=== PATIENT | female | born 1965 | race African-American/Black ===

== ENCOUNTER 2021-07-09 16:00 | Emergency (ER) | payer OTHER ==
[2021-07-09 16:52] LABS: #Eosinphils 0.1 10x3/uL (0.0-0.5); #Monocytes 0.5 10x3/uL (0.0-1.1); %Basophils 0.6 % (0.0-2.0); %Eosinophils 1.2 % (0.0-6.0); %Lymphocytes 28.3 % (18.0-47.0); %Monocytes 8.2 % (0.0-10.0); %Neutrophils 60.9 % (40.0-75.0); Hemoglobin 11.9 g/dL (12.0-15.5); Mean Corpuscular HGB CONC 31.4 g/dL (32.0-36.0); Mean Corpuscular Hemoglobin 30.4 pg (27.0-33.0); Mean Corpuscular Volume 96.7 fl (81.6-98.3); Mean Platelet Volume 11.5 fl (7.4-10.4); Platelet Count 201 10x3/uL (150-450); RBC Distribution Width 14.6 % (11.5-14.5); Red Blood Cell (RBC) Count 3.92 10x6/uL (3.90-5.03); White Blood Cell (WBC) Count 6.6 10x3/uL (3.5-10.5)
[2021-07-09 16:55] LABS: ALT (SGPT) 11 U/L (8-55); AST (SGOT) 16 U/L (5-34); Albumin 3.9 g/dL (3.5-5.0); Alkaline Phosphatase 82 U/L (40-110); Anion Gap 16 mmol/L (10-20); BUN (Urea Nitrogen) 13 mg/dL (9.8-20.1); Bilirubin, Total 1.3 mg/dL (0.2-1.2); Calc. Creatinine Clearance 0 mL/min (70-130); Calcium 8.7 mg/dL (7.8-10.44); Carbon Dioxide 27 mmol/L (22-29); Chloride 104 mmol/L (98-107); Globulin 2.9 g/dL (2.4-3.5); Glucose 131 mg/dL (70-105); Protein, Total 6.8 g/dL (6.0-8.3); Sodium 143 mmol/L (136-145)
[2021-07-09 18:34] LABS: Magnesium 1.2 mg/dL (1.6-2.6)
[2021-07-09] MEDS ORDERED: Magnesium 2 GM/50 ML BAG (IN WATER) ONE (18:48)
== END 2021-07-09 19:20 | disposition home or self-care (01) ==
LOC: CSHERS 16:00
DX: T82.897A Other specified complication of cardiac prosthetic devices, implants and grafts, initial encounter (principal); I48.91 Unspecified atrial fibrillation; I25.10 Atherosclerotic heart disease of native coronary artery without angina pectoris; I11.0 Hypertensive heart disease with heart failure; I50.9 Heart failure, unspecified; E78.5 Hyperlipidemia, unspecified; E11.9 Type 2 diabetes mellitus without complications
CPT/HCPCS: 71045; 80053; 83735; 83880; 84484; 85025; 93005; 94760; 96365; J3475

== ENCOUNTER 2022-03-20 16:19 | Emergency (ER) | payer BC, SELFPAY | END 2022-03-20 16:57 | disposition home or self-care (01) | LOC: CSHERS 16:19 | DX: Z45.02 Encounter for adjustment and management of automatic implantable cardiac defibrillator (principal); I11.0 Hypertensive heart disease with heart failure; I50.9 Heart failure, unspecified; E11.9 Type 2 diabetes mellitus without complications; E78.5 Hyperlipidemia, unspecified | CPT/HCPCS: 99283 ==

== ENCOUNTER 2022-10-09 15:00 | Emergency (ER) | payer SELFPAY | END 2022-10-09 16:05 | disposition home or self-care (01) | LOC: CSHERS 15:00 | DX: B37.9 Candidiasis, unspecified (principal); E78.5 Hyperlipidemia, unspecified; I11.0 Hypertensive heart disease with heart failure; I50.9 Heart failure, unspecified; E11.9 Type 2 diabetes mellitus without complications | CPT/HCPCS: 99282 ==

== ENCOUNTER 2023-01-10 14:45 | Emergency (ER) | payer SELFPAY ==
[2023-01-10] MEDS ORDERED: Dexamethasone 10 MG/ML VIAL ONE (18:18)
== END 2023-01-10 18:05 | disposition home or self-care (01) ==
LOC: CSHERS 14:45
DX: L03.115 Cellulitis of right lower limb (principal); E11.40 Type 2 diabetes mellitus with diabetic neuropathy, unspecified; I11.0 Hypertensive heart disease with heart failure; I50.9 Heart failure, unspecified; E78.5 Hyperlipidemia, unspecified; Z79.899 Other long term (current) drug therapy
CPT/HCPCS: 99283; J1100

== ENCOUNTER 2023-05-29 17:37 | Inpatient (IN) | payer SELFPAY ==
[2023-05-29 18:01] LABS: #Basophils 0.1 10x3/uL (0.0-0.2); #Eosinphils 0.1 10x3/uL (0.0-0.5); #Monocytes 0.5 10x3/uL (0.0-1.1); #Neutrophils 3.1 10x3/uL (1.5-8.4); %Basophils 0.8 % (0.0-2.0); %Eosinophils 0.8 % (0.0-6.0); %Lymphocytes 47.8 % (18.0-47.0); Hematocrit 47.6 % (34.9-44.5); Hemoglobin 15.2 g/dL (12.0-15.5); Mean Corpuscular HGB CONC 31.9 g/dL (32.0-36.0); Mean Corpuscular Hemoglobin 29.6 pg (27.0-33.0); Mean Corpuscular Volume 92.8 fl (81.6-98.3); Mean Platelet Volume 10.7 fl (7.4-10.4); Platelet Count 210 10x3/uL (150-450); RBC Distribution Width 16.1 % (11.5-14.5); Red Blood Cell (RBC) Count 5.13 10x6/uL (3.90-5.03); White Blood Cell (WBC) Count 7.1 10x3/uL (3.5-10.5)
[2023-05-29] MEDS ORDERED: Digoxin 0.5 MG/2 ML AMP ONE (18:03)
[2023-05-29] MEDS ORDERED: Magnesium 2 GM/50 ML BAG (IN WATER) ONE (18:04)
[2023-05-29] MEDS ORDERED: dilTIAZem 125 MG/25 ML SDV ONE (18:04)
[2023-05-29] MEDS ORDERED: dilTIAZem 25 MG/5 ML VIAL ONE (18:05)
[2023-05-29] MEDS ORDERED: Amiodarone 150 MG/3 ML VIAL ONE (18:16)
[2023-05-29] MEDS ORDERED: Amiodarone In Dextrose 200 ML ONE (18:17)
[2023-05-29 18:19] LABS: ALT (SGPT) 22 U/L (8-55); AST (SGOT) 25 U/L (5-34); Albumin 4.1 g/dL (3.5-5.0); Alkaline Phosphatase 78 U/L (40-110); Anion Gap 16 mmol/L (10-20); BUN (Urea Nitrogen) 12 mg/dL (9.8-20.1); Bilirubin, Total 2.6 mg/dL (0.2-1.2); Calc. Creatinine Clearance 0 mL/min (70-130); Calcium 8.9 mg/dL (7.8-10.44); Carbon Dioxide 21 mmol/L (22-29); Chloride 105 mmol/L (98-107); Estimated GFR 67; Globulin 3.2 g/dL (2.4-3.5); Glucose 170 mg/dL (70-105); Lipase 7 U/L (8-78); Potassium 4.2 mmol/L (3.5-5.1); Protein, Total 7.3 g/dL (6.0-8.3); Sodium 138 mmol/L (136-145)
[2023-05-29 18:21] LABS: Troponin I 0.035 ng/mL (< 0.028)
[2023-05-29] MEDS ORDERED: Furosemide 40 MG/4 ML VIAL ONE (18:51)
[2023-05-29] MEDS ORDERED: Acetaminophen 325 MG TAB PO PRN (19:33)
[2023-05-29] MEDS ORDERED: Ondansetron PF 4 MG/2 ML Vial IVP PRN (19:33)
[2023-05-29] MEDS ORDERED: Dextrose 5% in Water 1,000 ML IV PRN (19:38)
[2023-05-29] MEDS ORDERED: HumaLOG 300 UNITS/3 ML VIAL SC PRN ×2 (19:38)
[2023-05-29] MEDS ORDERED: Glucagon 1 MG/ML KIT IM PRN (19:38)
[2023-05-29] MEDS ORDERED: Dextrose 50% Abboject 50 ML SYRINGE SLOW IVP PRN (19:38)
[2023-05-29] MEDS ORDERED: Amiodarone In Dextrose 200 ML IVPB SCH (21:00)
[2023-05-29] MEDS ORDERED: Amiodarone In Dextrose 150 MG in Premix Bag 1 BAG IVPB SCH (21:00)
[2023-05-29] MEDS ORDERED: Amiodarone 450 MG in Dextrose 5% in Water 250 ML IVPB SCH (21:00)
[2023-05-29 21:40] LABS: Troponin I 0.037 ng/mL (< 0.028)
[2023-05-30 04:58] LABS: #Basophils 0.1 10x3/uL (0.0-0.2); #Eosinphils 0.1 10x3/uL (0.0-0.5); #Monocytes 0.5 10x3/uL (0.0-1.1); #Neutrophils 2.7 10x3/uL (1.5-8.4); %Basophils 1.1 % (0.0-2.0); %Lymphocytes 46.8 % (18.0-47.0); %Neutrophils 42.8 % (40.0-75.0); Hematocrit 43.8 % (34.9-44.5); Hemoglobin 14.1 g/dL (12.0-15.5); Mean Corpuscular HGB CONC 32.2 g/dL (32.0-36.0); Mean Corpuscular Hemoglobin 29.7 pg (27.0-33.0); Mean Corpuscular Volume 92.4 fl (81.6-98.3); Mean Platelet Volume 11.2 fl (7.4-10.4); Platelet Count 214 10x3/uL (150-450); RBC Distribution Width 15.9 % (11.5-14.5); Red Blood Cell (RBC) Count 4.74 10x6/uL (3.90-5.03); White Blood Cell (WBC) Count 6.2 10x3/uL (3.5-10.5)
[2023-05-30 05:20] LABS: Anion Gap 21 mmol/L (10-20); BUN (Urea Nitrogen) 12 mg/dL (9.8-20.1); Calc. Creatinine Clearance 180 mL/min (70-130); Calcium 9.2 mg/dL (7.8-10.44); Carbon Dioxide 18 mmol/L (22-29); Chloride 105 mmol/L (98-107); Estimated GFR 80; Glucose 129 mg/dL (70-105); Magnesium 1.5 mg/dL (1.6-2.6); Potassium 4.1 mmol/L (3.5-5.1); Sodium 140 mmol/L (136-145)
[2023-05-30] MEDS: Furosemide 40 MG/4 ML VIAL SLOW IVP SCH ×2 (05:54→14:51)
[2023-05-30 06:02] VITALS: BMI 127.5
[2023-05-30] MEDS ORDERED: Levothyroxine Sodium 75 MCG TAB PO SCH (07:15)
[2023-05-30] MEDS ORDERED: Magnesium 2 GM/50 ML(in water) 2 GM in Premix Bag 1 BAG IVPB SCH (07:15)
[2023-05-30] MEDS ORDERED: Dofetilide 0.25 MG CAP PO SCH (09:00)
[2023-05-30] MEDS ORDERED: Dofetilide 0.125 MG CAP PO SCH (09:15)
[2023-05-30] MEDS ORDERED: Ergocalciferol 1.25 MG(50,000 UNITS) CAP PO SCH (10:00)
[2023-05-30] MEDS: Calcium Carbonate 500 MG ChewTAB PO PRN ×3 (10:10→21:50)
[2023-05-30] MEDS: Rivaroxaban 10 MG TAB PO SCH (10:10)
[2023-05-30] MEDS: Gabapentin 100 MG CAP PO SCH ×3 (10:11→21:45)
[2023-05-30 13:39] LABS: Digoxin Less than 0.15 ng/mL (0.8-2.0)
[2023-05-30 17:34] LABS: Magnesium 1.6 mg/dL (1.6-2.6); Potassium 3.8 mmol/L (3.5-5.1); Sodium 138 mmol/L (136-145)
[2023-05-30] MEDS: Atorvastatin Calcium 40 MG TAB PO SCH (21:45)
[2023-05-30] MEDS: Dofetilide 0.25 MG CAP PO SCH (22:30)
[2023-05-31 05:03] LABS: Anion Gap 17 mmol/L (10-20); BUN (Urea Nitrogen) 11 mg/dL (9.8-20.1); Calc. Creatinine Clearance 384 mL/min (70-130); Calcium 9.3 mg/dL (7.8-10.44); Carbon Dioxide 24 mmol/L (22-29); Chloride 102 mmol/L (98-107); Estimated GFR 78; Glucose 134 mg/dL (70-105); Magnesium 1.4 mg/dL (1.6-2.6); Potassium 3.7 mmol/L (3.5-5.1); Sodium 139 mmol/L (136-145)
[2023-05-31 05:07] LABS: #Basophils 0.1 10x3/uL (0.0-0.2); #Eosinphils 0.1 10x3/uL (0.0-0.5); #Monocytes 0.5 10x3/uL (0.0-1.1); #Neutrophils 2.3 10x3/uL (1.5-8.4); %Basophils 0.9 % (0.0-2.0); %Eosinophils 1.9 % (0.0-6.0); %Lymphocytes 45.5 % (18.0-47.0); %Monocytes 8.5 % (0.0-10.0); Hematocrit 43.1 % (34.9-44.5); Hemoglobin 13.8 g/dL (12.0-15.5); Mean Corpuscular Hemoglobin 29.6 pg (27.0-33.0); Mean Corpuscular Volume 92.3 fl (81.6-98.3); Mean Platelet Volume 10.9 fl (7.4-10.4); Platelet Count 209 10x3/uL (150-450); RBC Distribution Width 15.9 % (11.5-14.5); Red Blood Cell (RBC) Count 4.67 10x6/uL (3.90-5.03); White Blood Cell (WBC) Count 5.3 10x3/uL (3.5-10.5)
[2023-05-31] MEDS ORDERED: Potassium Chloride 20 MEQ TAB PO SCH (06:30)
[2023-05-31] MEDS: Furosemide 40 MG/4 ML VIAL SLOW IVP SCH ×2 (06:36→16:34)
[2023-05-31] MEDS: Levothyroxine Sodium 75 MCG TAB PO SCH (06:38)
[2023-05-31] MEDS ORDERED: Magnesium 2 GM/50 ML(in water) 2 GM in Premix Bag 1 BAG IVPB SCH (09:45)
[2023-05-31] MEDS: Rivaroxaban 10 MG TAB PO SCH (09:47)
[2023-05-31] MEDS: Spironolactone 25 MG TAB PO SCH (09:47)
[2023-05-31] MEDS: Magnesium Oxide 400 MG TAB PO SCH ×2 (09:49→21:25)
[2023-05-31] MEDS: Gabapentin 100 MG CAP PO SCH ×3 (09:50→21:24)
[2023-05-31] MEDS: Sertraline 100 MG TAB PO SCH (09:52)
[2023-05-31] MEDS: Dofetilide 0.25 MG CAP PO SCH ×2 (09:54→21:24)
[2023-05-31] MEDS: Atorvastatin Calcium 40 MG TAB PO SCH (21:25)
[2023-05-31] MEDS: Calcium Carbonate 500 MG ChewTAB PO PRN (21:29)
[2023-06-01 05:12] LABS: #Basophils 0.1 10x3/uL (0.0-0.2); #Eosinphils 0.1 10x3/uL (0.0-0.5); #Monocytes 0.5 10x3/uL (0.0-1.1); #Neutrophils 2.7 10x3/uL (1.5-8.4); %Basophils 0.8 % (0.0-2.0); %Eosinophils 1.8 % (0.0-6.0); %Monocytes 8.6 % (0.0-10.0); %Neutrophils 44.5 % (40.0-75.0); Hematocrit 43.4 % (34.9-44.5); Mean Corpuscular HGB CONC 32.3 g/dL (32.0-36.0); Mean Corpuscular Hemoglobin 29.8 pg (27.0-33.0); Mean Corpuscular Volume 92.3 fl (81.6-98.3); Mean Platelet Volume 11.2 fl (7.4-10.4); Platelet Count 209 10x3/uL (150-450); RBC Distribution Width 15.9 % (11.5-14.5); White Blood Cell (WBC) Count 6.1 10x3/uL (3.5-10.5)
[2023-06-01 05:24] LABS: Anion Gap 16 mmol/L (10-20); BUN (Urea Nitrogen) 13 mg/dL (9.8-20.1); Calc. Creatinine Clearance 393 mL/min (70-130); Calcium 9.1 mg/dL (7.8-10.44); Carbon Dioxide 28 mmol/L (22-29); Chloride 101 mmol/L (98-107); Estimated GFR 80; Glucose 107 mg/dL (70-105); Magnesium 1.5 mg/dL (1.6-2.6); Potassium 3.9 mmol/L (3.5-5.1); Sodium 141 mmol/L (136-145)
[2023-06-01] MEDS: Levothyroxine Sodium 75 MCG TAB PO SCH (05:48)
[2023-06-01] MEDS ORDERED: Bumetanide 1 MG TAB PO SCH (07:30)
[2023-06-01] MEDS ORDERED: Carvedilol 6.25 MG TAB PO SCH (08:00)
[2023-06-01 08:27] VITALS: TEMP 97.8
[2023-06-01] MEDS ORDERED: Glycopyrrolate 0.2 MG/ML 5 ML SYRINGE ONE (08:50)
[2023-06-01] MEDS ORDERED: PROPOFOL 20 ML ONE (08:50)
[2023-06-01] MEDS ORDERED: Losartan 25 MG TAB PO SCH (09:00)
[2023-06-01] MEDS ORDERED: Magnesium 2 GM/50 ML(in water) 2 GM in Premix Bag 1 BAG IVPB SCH (09:15)
[2023-06-01] MEDS ORDERED: Potassium Chloride 20 MEQ TAB PO SCH (09:15)
[2023-06-01 11:53] VITALS: BP 104/69
[2023-06-01] MEDS: Magnesium Oxide 400 MG TAB PO SCH (11:55)
[2023-06-01] MEDS: Rivaroxaban 10 MG TAB PO SCH (11:55)
[2023-06-01] MEDS: Sertraline 100 MG TAB PO SCH (11:57)
[2023-06-01] MEDS: Gabapentin 100 MG CAP PO SCH (11:58)
[2023-06-01] MEDS: Spironolactone 25 MG TAB PO SCH (11:59)
[2023-06-01] MEDS ORDERED: Lidocaine 1% (PF) 30 ML VIAL ONE (12:00)
[2023-06-01] MEDS ORDERED: PROPOFOL 200 MG/20 ML VIAL ONE (12:00)
[2023-06-01] MEDS: Dofetilide 0.25 MG CAP PO SCH (13:21)
== END 2023-06-01 13:50 | disposition home or self-care (01) | DRG 308 ==
LOC: CSHERS 17:37 → CSHTELE 20:27
PROVIDERS: ADMIT Family Medicine; ATTEND Internal Medicine
PROC: 5A2204Z Restoration of Cardiac Rhythm, Single (ICD-10-PCS; principal; 2023-06-01)
DX: I48.19 Other persistent atrial fibrillation (principal); I50.43 Acute on chronic combined systolic (congestive) and diastolic (congestive) heart failure; Z68.43 Body mass index [BMI] 50.0-59.9, adult; I42.8 Other cardiomyopathies; E11.9 Type 2 diabetes mellitus without complications; I10 Essential (primary) hypertension; E78.5 Hyperlipidemia, unspecified; K21.9 Gastro-esophageal reflux disease without esophagitis; E66.01 Morbid (severe) obesity due to excess calories; I27.20 Pulmonary hypertension, unspecified; E83.42 Hypomagnesemia; R77.8 Other specified abnormalities of plasma proteins; Z79.899 Other long term (current) drug therapy; Z79.84 Long term (current) use of oral hypoglycemic drugs; Z79.01 Long term (current) use of anticoagulants; Z86.718 Personal history of other venous thrombosis and embolism; Z86.711 Personal history of pulmonary embolism; Z95.810 Presence of automatic (implantable) cardiac defibrillator; Z90.49 Acquired absence of other specified parts of digestive tract; Z98.890 Other specified postprocedural states
CPT/HCPCS: 36415; 36416; 71045; 80048; 80053; 80162; 83690; 83735; 83880; 84443; 84484; 85025; 92960; 93005; 93010; 93306; 94760; 96365; 96366; 96375; J0282; J0283; J1160; J1940; J2001; J2704; J3475; J8499

== ENCOUNTER 2023-08-26 23:39 | Inpatient (IN) | payer OTHER ==
[2023-08-27] MEDS ORDERED: Magnesium 2 GM/50 ML(in water) 2 GM in Premix 1 BAG IVPB SCH (04:00)
[2023-08-27] MEDS ORDERED: dilTIAZem 125 MG in Sodium Chloride 0.9% 100 ML IVPB SCH (04:15)
[2023-08-27] MEDS ORDERED: HumaLOG 300 UNITS/3 ML VIAL SC PRN (04:24)
[2023-08-27] MEDS ORDERED: Dextrose 50% Abboject 50 ML SYRINGE SLOW IVP PRN (04:24)
[2023-08-27] MEDS ORDERED: Dextrose 5% in Water 1,000 ML IV PRN (04:24)
[2023-08-27] MEDS ORDERED: Glucagon 1 MG/ML KIT IM PRN (04:24)
[2023-08-27 04:53] LABS: #Monocytes 0.6 10x3/uL (0.0-1.1); %Basophils 0.5 % (0.0-2.0); %Lymphocytes 24.3 % (18.0-47.0); %Monocytes 8.3 % (0.0-10.0); %Neutrophils 65.7 % (40.0-75.0); Hematocrit 40.3 % (34.9-44.5); Hemoglobin 12.9 g/dL (12.0-15.5); Mean Corpuscular Hemoglobin 30.3 pg (27.0-33.0); Mean Corpuscular Volume 94.6 fl (81.6-98.3); Mean Platelet Volume 10.7 fl (7.4-10.4); Platelet Count 112 10x3/uL (150-450); RBC Distribution Width 15.7 % (11.5-14.5); Red Blood Cell (RBC) Count 4.26 10x6/uL (3.90-5.03); White Blood Cell (WBC) Count 7.7 10x3/uL (3.5-10.5)
[2023-08-27 04:58] LABS: Anion Gap 23 mmol/L (10-20); BUN (Urea Nitrogen) 15 mg/dL (9.8-20.1); Calc. Creatinine Clearance 170 mL/min (70-130); Calcium 8.5 mg/dL (7.8-10.44); Carbon Dioxide 16 mmol/L (22-29); Chloride 104 mmol/L (98-107); Estimated GFR 72; Glucose 127 mg/dL (70-105); Magnesium 1.4 mg/dL (1.6-2.6); Potassium 4.7 mmol/L (3.5-5.1); Sodium 138 mmol/L (136-145)
[2023-08-27 04:59] LABS: Troponin I 0.084 ng/mL (< 0.028)
[2023-08-27] MEDS: Furosemide 40 MG (4 mL) VIAL SLOW IVP SCH ×2 (05:03→13:07)
[2023-08-27] MEDS: Levothyroxine Sodium 75 MCG TAB PO SCH (05:03)
[2023-08-27] MEDS: metFORMIN 500 MG TAB PO SCH ×2 (08:27→16:39)
[2023-08-27] MEDS: Carvedilol 6.25 MG TAB PO SCH ×2 (08:27→20:11)
[2023-08-27] MEDS: Losartan 25 MG TAB PO SCH (08:28)
[2023-08-27] MEDS: Sertraline 100 MG TAB PO SCH (08:28)
[2023-08-27] MEDS: Dofetilide 0.25 MG CAP PO SCH ×2 (08:28→20:11)
[2023-08-27] MEDS: Digoxin 0.125 MG TAB PO SCH (08:28)
[2023-08-27] MEDS: Spironolactone 25 MG TAB PO SCH (08:29)
[2023-08-27] MEDS ORDERED: Dofetilide 0.25 MG CAP PO SCH (09:00)
[2023-08-27 12:35] LABS: Digoxin Less than 0.15 ng/mL (0.8-2.0)
[2023-08-27 12:46] LABS: Uric Acid 10.6 mg/dL (2.6-6.0)
[2023-08-27] MEDS: Rivaroxaban 10 MG TAB PO SCH (16:39)
[2023-08-27] MEDS: Atorvastatin Calcium 40 MG TAB PO SCH (20:11)
[2023-08-27] MEDS: Acetaminophen 325 MG TAB PO PRN (21:07)
[2023-08-27] MEDS: Guaifenesin DM 100-10/5 ML UDCUP PO PRN (21:07)
[2023-08-28 04:44] LABS: Anion Gap 17 mmol/L (10-20); BUN (Urea Nitrogen) 15 mg/dL (9.8-20.1); Calc. Creatinine Clearance 223 mL/min (70-130); Calcium 8.1 mg/dL (7.8-10.44); Carbon Dioxide 19 mmol/L (22-29); Chloride 104 mmol/L (98-107); Estimated GFR 99; Glucose 113 mg/dL (70-105); Potassium 4.8 mmol/L (3.5-5.1); Sodium 135 mmol/L (136-145)
[2023-08-28 05:10] LABS: Troponin I 0.033 ng/mL (< 0.028)
[2023-08-28] MEDS: Levothyroxine Sodium 75 MCG TAB PO SCH (05:25)
[2023-08-28] MEDS: Furosemide 40 MG (4 mL) VIAL SLOW IVP SCH ×2 (05:25→06:56)
[2023-08-28] MEDS: Losartan 25 MG TAB PO SCH ×2 (08:12→09:00)
[2023-08-28] MEDS: Dofetilide 0.25 MG CAP PO SCH (08:13)
[2023-08-28] MEDS: metFORMIN 500 MG TAB PO SCH ×2 (08:14→16:39)
[2023-08-28] MEDS: Digoxin 0.125 MG TAB PO SCH (08:15)
[2023-08-28] MEDS: Sertraline 100 MG TAB PO SCH (08:15)
[2023-08-28] MEDS: Spironolactone 25 MG TAB PO SCH (08:17)
[2023-08-28] MEDS: Carvedilol 6.25 MG TAB PO SCH ×2 (10:58→20:44)
[2023-08-28] MEDS: Rivaroxaban 10 MG TAB PO SCH (16:39)
[2023-08-28] MEDS: Atorvastatin Calcium 40 MG TAB PO SCH (20:44)
[2023-08-28] MEDS: Ribavirin 200 MG CAP PO SCH (20:44)
[2023-08-28] MEDS: Guaifenesin DM 100-10/5 ML UDCUP PO PRN (20:54)
[2023-08-28] MEDS: Acetaminophen 325 MG TAB PO PRN (20:55)
[2023-08-28] MEDS: Ondansetron PF 4 MG/2 ML Vial IVP PRN (20:58)
[2023-08-29 04:01] LABS: Anion Gap 15 mmol/L (10-20); BUN (Urea Nitrogen) 14 mg/dL (9.8-20.1); Calc. Creatinine Clearance 223 mL/min (70-130); Calcium 8.4 mg/dL (7.8-10.44); Carbon Dioxide 20 mmol/L (22-29); Chloride 102 mmol/L (98-107); Estimated GFR 99; Glucose 118 mg/dL (70-105); Potassium 4.4 mmol/L (3.5-5.1); Sodium 133 mmol/L (136-145)
[2023-08-29] MEDS: Levothyroxine Sodium 75 MCG TAB PO SCH (05:24)
[2023-08-29] MEDS: Ribavirin 200 MG CAP PO SCH ×2 (08:02→21:35)
[2023-08-29] MEDS: Digoxin 0.125 MG TAB PO SCH (08:03)
[2023-08-29] MEDS: metFORMIN 500 MG TAB PO SCH ×2 (08:03→17:43)
[2023-08-29] MEDS: Sertraline 100 MG TAB PO SCH (08:03)
[2023-08-29] MEDS: Losartan 25 MG TAB PO SCH (08:04)
[2023-08-29] MEDS: Carvedilol 6.25 MG TAB PO SCH ×2 (08:04→21:33)
[2023-08-29] MEDS: Spironolactone 25 MG TAB PO SCH (08:05)
[2023-08-29] MEDS: Bumetanide 1 MG TAB PO SCH (17:43)
[2023-08-29] MEDS: Rivaroxaban 10 MG TAB PO SCH (17:43)
[2023-08-29] MEDS: Guaifenesin DM 100-10/5 ML UDCUP PO PRN (17:47)
[2023-08-29] MEDS: Atorvastatin Calcium 40 MG TAB PO SCH (21:33)
[2023-08-30 04:12] LABS: Anion Gap 15 mmol/L (10-20); BUN (Urea Nitrogen) 13 mg/dL (9.8-20.1); Calc. Creatinine Clearance 196 mL/min (70-130); Calcium 8.8 mg/dL (7.8-10.44); Carbon Dioxide 23 mmol/L (22-29); Chloride 98 mmol/L (98-107); Estimated GFR 84; Glucose 113 mg/dL (70-105); Sodium 132 mmol/L (136-145)
[2023-08-30] MEDS: Levothyroxine Sodium 75 MCG TAB PO SCH (05:34)
[2023-08-30] MEDS: metFORMIN 500 MG TAB PO SCH ×2 (08:14→16:46)
[2023-08-30] MEDS: Bumetanide 1 MG TAB PO SCH ×2 (08:14→16:46)
[2023-08-30] MEDS: Digoxin 0.125 MG TAB PO SCH ×2 (08:15→08:34)
[2023-08-30] MEDS: Sertraline 100 MG TAB PO SCH (08:15)
[2023-08-30] MEDS: Ribavirin 200 MG CAP PO SCH ×2 (08:16→20:43)
[2023-08-30] MEDS: Carvedilol 6.25 MG TAB PO SCH ×2 (08:17→20:45)
[2023-08-30] MEDS: Spironolactone 25 MG TAB PO SCH (08:17)
[2023-08-30] MEDS: Losartan 25 MG TAB PO SCH (08:17)
[2023-08-30] MEDS: Rivaroxaban 10 MG TAB PO SCH (16:46)
[2023-08-30] MEDS: Ondansetron PF 4 MG/2 ML Vial IVP PRN (20:43)
[2023-08-30] MEDS: Atorvastatin Calcium 40 MG TAB PO SCH (20:43)
[2023-08-31 04:27] LABS: Anion Gap 16 mmol/L (10-20); BUN (Urea Nitrogen) 11 mg/dL (9.8-20.1); Calc. Creatinine Clearance 191 mL/min (70-130); Calcium 8.7 mg/dL (7.8-10.44); Carbon Dioxide 27 mmol/L (22-29); Chloride 100 mmol/L (98-107); Estimated GFR 84; Glucose 105 mg/dL (70-105); Potassium 3.7 mmol/L (3.5-5.1); Sodium 139 mmol/L (136-145)
[2023-08-31] MEDS ORDERED: Magnesium 2 GM/50 ML(in water) 2 GM in Premix 1 BAG IVPB SCH ×2 (05:00→10:00)
[2023-08-31] MEDS: Levothyroxine Sodium 75 MCG TAB PO SCH (05:00)
[2023-08-31 05:38] VITALS: BMI 57.1
[2023-08-31 07:44] VITALS: BP 107/70; TEMP 97.9
[2023-08-31] MEDS: metFORMIN 500 MG TAB PO SCH (08:03)
[2023-08-31] MEDS: Sertraline 100 MG TAB PO SCH (08:03)
[2023-08-31] MEDS: Digoxin 0.125 MG TAB PO SCH (08:03)
[2023-08-31] MEDS: Spironolactone 25 MG TAB PO SCH (08:03)
[2023-08-31] MEDS: Bumetanide 1 MG TAB PO SCH (08:04)
[2023-08-31] MEDS: Ribavirin 200 MG CAP PO SCH (08:04)
[2023-08-31] MEDS: Carvedilol 6.25 MG TAB PO SCH (08:04)
[2023-08-31] MEDS: Losartan 25 MG TAB PO SCH (08:04)
== END 2023-08-31 16:25 | disposition home or self-care (01) | DRG 291 ==
LOC: UNDOADMIN 23:39 → CSHICU 23:39
PROVIDERS: ADMIT Family Medicine; ATTEND Hospitalist
PROC: 5A09357 Assistance with Respiratory Ventilation, Less than 24 Consecutive Hours, Continuous Positive Airway Pressure (ICD-10-PCS; principal; 2023-08-27)
DX: I50.23 Acute on chronic systolic (congestive) heart failure (principal); J96.01 Acute respiratory failure with hypoxia; I42.8 Other cardiomyopathies; I24.89 Other forms of acute ischemic heart disease; Z68.43 Body mass index [BMI] 50.0-59.9, adult; I48.19 Other persistent atrial fibrillation; J20.5 Acute bronchitis due to respiratory syncytial virus; E78.5 Hyperlipidemia, unspecified; E03.9 Hypothyroidism, unspecified; E66.01 Morbid (severe) obesity due to excess calories; E11.69 Type 2 diabetes mellitus with other specified complication; E83.42 Hypomagnesemia; K21.9 Gastro-esophageal reflux disease without esophagitis; I10 Essential (primary) hypertension; I49.5 Sick sinus syndrome; Z79.899 Other long term (current) drug therapy; Z98.890 Other specified postprocedural states; Z79.84 Long term (current) use of oral hypoglycemic drugs; Z95.810 Presence of automatic (implantable) cardiac defibrillator; Z90.49 Acquired absence of other specified parts of digestive tract; I48.91 Unspecified atrial fibrillation
CPT/HCPCS: 36415; 36416; 80048; 80162; 83735; 84484; 84550; 85025; 87324; 87449; 87807; 93005; 93010; 94660; 94760; 94762; J1940; J2405; J3475; J8499

== ENCOUNTER 2024-03-02 11:47 | Emergency (ER) | payer MEDICAID, OTHER ==
[2024-03-02 14:34] LABS: #Basophils 0.05 10x3/uL (0.0-0.2); #Monocytes 0.58 10x3/uL (0.0-1.1); #Neutrophils 2.81 10x3/uL (1.5-8.4); %Basophils 0.8 % (0.0-2.0); %Eosinophils 1.6 % (0.0-6.0); %Lymphocytes 43.5 % (18.0-47.0); %Monocytes 9.2 % (0.0-10.0); %Neutrophils 44.6 % (40.0-75.0); Hematocrit 44.1 % (34.9-44.5); Mean Corpuscular Hemoglobin 31.6 pg (27.0-33.0); Mean Corpuscular Volume 92.8 fL (81.6-98.3); Mean Platelet Volume 11.2 fL (7.4-10.4); Platelet Count 193 10x3/uL (150-450); RBC Distribution Width 13.6 % (11.5-14.5); Red Blood Cell (RBC) Count 4.75 10x6/uL (3.90-5.03); White Blood Cell (WBC) Count 6.3 10x3/uL (3.5-10.5)
[2024-03-02 14:46] LABS: AST (SGOT) 18 U/L (5-34); Anion Gap 19 mmol/L (10-20); Bilirubin, Total 1.9 mg/dL (0.2-1.2); Calcium 9.8 mg/dL (7.8-10.44); Carbon Dioxide 29 mmol/L (22-29); Chloride 98 mmol/L (98-107); Potassium 3.9 mmol/L (3.5-5.1); Protein, Total 7.9 g/dL (6.0-8.3); Sodium 142 mmol/L (136-145)
[2024-03-02 15:01] LABS: ALT (SGPT) 11 U/L (8-55); Alkaline Phosphatase 90 U/L (40-110); BUN (Urea Nitrogen) 18 mg/dL (9.8-20.1); Calc. Creatinine Clearance 0 mL/min (70-130); Estimated GFR 72; Glucose 93 mg/dL (70-105)
[2024-03-02 20:10] LABS: Digoxin 0.71 ng/mL (0.8-2.0)
== END 2024-03-02 16:03 | disposition home or self-care (01) ==
LOC: CSHERS 11:47
DX: M25.572 Pain in left ankle and joints of left foot (principal); M25.472 Effusion, left ankle; I11.0 Hypertensive heart disease with heart failure; I50.9 Heart failure, unspecified; E11.9 Type 2 diabetes mellitus without complications; I48.91 Unspecified atrial fibrillation; Z55.6 Problems related to health literacy; Z79.01 Long term (current) use of anticoagulants
CPT/HCPCS: 36415; 80053; 80162; 83880; 85025; 93005; 93923

== ENCOUNTER 2024-07-13 12:51 | Emergency (ER) | payer OTHER ==
[2024-07-13 14:09] LABS: INR-International Normal Ratio 1.5; PTT 36.7 sec (22.0-33.0); Prothrombin Time 15.8 sec (9.5-12.1)
[2024-07-13 14:11] LABS: #Basophils 0.03 10x3/uL (0.0-0.2); #Eosinophils 0.09 10x3/uL (0.0-0.5); #Monocytes 0.52 10x3/uL (0.0-1.1); #Neutrophils 2.46 10x3/uL (1.5-8.4); %Basophils 0.6 % (0.0-2.0); %Eosinophils 1.8 % (0.0-6.0); %Lymphocytes 37.6 % (18.0-47.0); %Monocytes 10.4 % (0.0-10.0); %Neutrophils 49.2 % (40.0-75.0); Hematocrit 41.6 % (34.9-44.5); Hemoglobin 13.5 g/dL (12.0-15.5); Mean Corpuscular HGB CONC 32.5 g/dL (32.0-36.0); Mean Corpuscular Hemoglobin 31.6 pg (27.0-33.0); Mean Corpuscular Volume 97.4 fL (81.6-98.3); Mean Platelet Volume 10.9 fL (7.4-10.4); Platelet Count 199 10x3/uL (150-450); RBC Distribution Width 13.2 % (11.5-14.5); Red Blood Cell (RBC) Count 4.27 10x6/uL (3.90-5.03)
[2024-07-13 14:15] LABS: Phosphorus 4.2 mg/dL (2.3-4.7)
[2024-07-13 14:17] LABS: ALT (SGPT) 14 U/L (8-55); AST (SGOT) 20 U/L (5-34); Albumin 3.8 g/dL (3.5-5.0); Alkaline Phosphatase 85 U/L (40-110); Anion Gap 15 mmol/L (10-20); BUN (Urea Nitrogen) 17 mg/dL (9.8-20.1); Bilirubin, Total 1.8 mg/dL (0.2-1.2); Calc. Creatinine Clearance 0 mL/min (70-130); Calcium 9.9 mg/dL (7.8-10.44); Carbon Dioxide 25 mmol/L (22-29); Chloride 102 mmol/L (98-107); Estimated GFR 74; Glucose 91 mg/dL (70-105); Magnesium 1.7 mg/dL (1.6-2.6); Potassium 3.9 mmol/L (3.5-5.1); Protein, Total 7.8 g/dL (6.0-8.3); Sodium 138 mmol/L (136-145)
[2024-07-13 14:20] LABS: Troponin I Less than 0.010 ng/mL (< 0.028)
== END 2024-07-13 19:13 | disposition home or self-care (01) ==
LOC: CSHERS 12:51
DX: I48.91 Unspecified atrial fibrillation (principal); I11.0 Hypertensive heart disease with heart failure; I50.9 Heart failure, unspecified; E11.9 Type 2 diabetes mellitus without complications; E78.5 Hyperlipidemia, unspecified; Z79.01 Long term (current) use of anticoagulants; Z79.84 Long term (current) use of oral hypoglycemic drugs; Z79.899 Other long term (current) drug therapy; Z79.85 Long-term (current) use of injectable non-insulin antidiabetic drugs
CPT/HCPCS: 71045; 80053; 83735; 83880; 84100; 84484; 85025; 85610; 85730; 93005